=== PATIENT | male | born 1955 | race Caucasian/White ===

== ENCOUNTER 2018-08-25 15:47 | Emergency (ER) | payer BC ==
[~2018-08-25] VITALS: Ht 182.9 cm; Wt 77.0 kg
[2018-08-25 15:49] VITALS: BP 182/90
[2018-08-25] MEDS ORDERED: nitroGLYCERIN 1gm ointment UD TP ONE (16:50)
[2018-08-25] MEDS ORDERED: HYDR-3965 PO (17:05)
== END 2018-08-25 18:24 | disposition home or self-care (01) ==
LOC: ER 15:47
DX: S61.111A Laceration without foreign body of right thumb with damage to nail, initial encounter (principal); Z79.899 Other long term (current) drug therapy; W29.8XXA Contact with other powered hand tools and household machinery, initial encounter; Y93.89 Activity, other specified; Y92.89 Other specified places as the place of occurrence of the external cause; Y99.8 Other external cause status
CPT/HCPCS: 12002; 73140; 99283